=== PATIENT | male | born 1995 | race Caucasian/White ===

== ENCOUNTER 2017-07-23 18:37 | Emergency (ER) | payer OTHER ==
[~2017-07-23] VITALS: Ht 182.9 cm; Wt 81.8 kg
[2017-07-23 18:41] VITALS: BP 148/88
[2017-07-23] MEDS ORDERED: ACULAR 0.5100 DROP/5 LEFT EYE (20:23)
== END 2017-07-23 21:12 | disposition home or self-care (01) ==
LOC: EME 18:37
DX: S05.02XA Injury of conjunctiva and corneal abrasion without foreign body, left eye, initial encounter (principal); W20.8XXA Other cause of strike by thrown, projected or falling object, initial encounter; Y93.H2 Activity, gardening and landscaping; Y92.007 Garden or yard of unspecified non-institutional (private) residence as the place of occurrence of the external cause; H10.12 Acute atopic conjunctivitis, left eye; F17.200 Nicotine dependence, unspecified, uncomplicated
CPT/HCPCS: 99281; 99283